=== PATIENT | female | born 1955 | race Caucasian/White ===

== ENCOUNTER 2016-11-01 08:57 | Day surgery (SDC) | payer OTHER ==
[~2016-11-01] VITALS: Ht 139.7 cm; Wt 49.2 kg
[2016-11-01] MEDS ORDERED: ADVIL (09:34)
[2016-11-01 09:39] VITALS: Ht 139.7 cm; Wt 49.2 kg
[2016-11-01 09:53] VITALS: BP 109/60; PULSE 64; RESP 18
--- NOTE | 2016-11-01 10:58 | OPPN ---
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
[2016-11-01] MEDS ORDERED: MIDAZOLAM 1 MG/ML 2 ML INJ ONE ×2 (10:59)
[2016-11-01] MEDS ORDERED: FENTAnyl 50 MCG/ML VIAL ONE (10:59)
--- NOTE | 2016-11-01 11:40 | GILP ---
DATE OF PROCEDURE: 11/01/2016 NAME OF PROCEDURE: Colonoscopy. SURGEON: Yu Shields MD PREOPERATIVE DIAGNOSIS: Screening colonoscopy. POSTOPERATIVE DIAGNOSES: 1. Colonoscopy all the way to the cecum. 2. Internal hemorrhoids. 3. No colon neoplasm was identified. INDICATIONS FOR PROCEDURE: The patient is a 60-year-old female patient who was scheduled for screening colonoscopy. The procedure and possible complications were well explained to the patient. She understood and consented to the procedure. DESCRIPTION OF PROCEDURE: Under the influence of fentanyl and Versed, the colonoscope was carefully introduced in the rectum. Under direct vision, it was advanced all the way to the cecum. Findings, the patient had internal hemorrhoids. No colon neoplasm was identified. She tolerated the procedure very well. There was no complication from the procedure. At the end of procedure, she was awake with stable vital signs and she was discharged home in the care of her family. IMPRESSION: 1. Colonoscopy all the way to the cecum. 2. Internal hemorrhoids. 3. No colon neoplasm was identified. PLAN: Next screening colonoscopy in 10 years. Dictated By: MD HALEIGH Martino/bess/ranjana /Document#: [id number]
== END 2016-11-01 14:41 | disposition home or self-care (01) ==
LOC: GIL 08:57
PROVIDERS: ATTEND Internal Medicine Gastroenterology
DX: Z12.11 Encounter for screening for malignant neoplasm of colon (principal); K64.8 Other hemorrhoids
CPT/HCPCS: 45378; J2250; J3010